=== PATIENT | female | born 1930 | race Hispanic/Latino ===

== ENCOUNTER 2018-08-16 11:16 | Emergency (ER) | payer MEDICARE, MEDICAID ==
[2018-08-16 11:31] VITALS: BMI 16.0
[2018-08-16] MEDS ORDERED: Iodixanol 320 MG/ML 100 ML BOTTLE IV ONE (11:34)
[2018-08-16] MEDS ORDERED: Phenylephrine 10 mg/ml Inj ONE (11:34)
[2018-08-16] MEDS ORDERED: Iohexol 350mgl/ml 50 ML ONE (11:34)
[2018-08-16] MEDS ORDERED: Lidocaine PF 2% (5 ml) Inj (For Cardiac Arrhy) ONE (11:34)
[2018-08-16] MEDS ORDERED: Iodixanol 320 MG/ML 200 ML BOTTLE IV ONE (11:34)
[2018-08-16] MEDS ORDERED: Nitroglycerin 50mg in D5W 0 MG/0 ML BOTTLE IV ONE (11:34)
--- NOTE | 2018-08-16 11:34 | ED PDOC ---
Arrival/HPI - General Chief Complaint: Cardiac Arrest Historian: Family (Grandson), EMS EM Caveat: Acuity of Condition - History of Present Illness Narrative History of Present Illness (Text): 08/16/18 11:34 87 y/o F with a PMH of arthritis presents to the ED via EMS s/p cardiac arrest prior to arrival. Per grandson, patient has been feeling unwell for the last week and went into cardiopulmonary arrest around 10:15am this morning, witnessed by family. BLS was subsequently called, who found patient in cardiac arrest and immediately initiated CPR until ALS arrived. Per ALS, she was found to have V- fib, defibrillated once at 360J, given 1mg epi, with ROSC @10:38. Patient was intubated en route to the ED and given 20 mg push dose epi, 2 mg of versed and 100mg phenylephrine via IO in L. tibia. HPI and ROS is limited due to acuity of patient. Time/Duration: Prior to Arrival Symptom Onset: Sudden Symptom Course: Unchanged Activities at Onset: Light Context: Home Past Medical History - Provider Review Nursing Documentation Reviewed: Yes - Infectious Disease Hx of Infectious Diseases: None - Reproductive Menopause: Yes - Psychiatric Hx Substance Use: No Family/Social History - Physician Review Nursing Documentation Reviewed: Yes Family/Social History: No Known Family HX Smoking Status: Unknown If Ever Smoked Hx Alcohol Use: No Hx Substance Use: No Allergies/Home Meds Allergies/Adverse Reactions: Allergies No Known Allergies Allergy (Verified 08/16/18 11:28) Home Medications: Home Meds Medication Instructions Recorded Confirmed Unobtainable 08/16/18 08/16/18 Review of Systems - Physician Review All systems were reviewed & negative as marked: Yes - Review of Systems Systems not reviewed;Unavailable: Acuity of Condition Physical Exam Vital Signs Reviewed: Yes Vital Signs Temp Pulse Resp BP Pulse Ox 08/16/18 11:29 96.8 F L 119 H 20 132/90 99 Temperature: Afebrile Blood Pressure: Normal Pulse: Tachycardic Respiratory Rate: Mechanically Ventilated Mental Status: Positive for: other (Unresponsive). No: Alert and Oriented X 3 - Systems Exam Head: Present: Atraumatic, Normocephalic Pupils: Present: Other (2mm minimally reactive) Conjunctiva: Present: Normal Mouth: Present: Dry Respiratory/Chest: Present: Clear to Auscultation, Other (ET tube in place) Cardiovascular: Present: Normal S1, S2, Tachycardic Abdomen: Present: Other (abd soft) Upper Extremity: Present: Normal Inspection Lower Extremity: Present: Normal Inspection Neurological: No: GCS=15 Skin: Present: Warm, Dry. No: Rashes Psychiatric: No: Alert, Oriented x 3 Medical Decision Making ED Course and Treatment: Patient seen and examined immediately upon arrival to the ED. EKG done showing ST elevation in inferior and lateral leads. Code heart called. Patient found to have guaiac positive stool. Labs drawn. 08/16/18 11:[address] Zarate, who came down to see the patient. Given advanced age and GI bleed, will not take to dairy lab technician. Can start heparin if H&H is stable. 08/16/18 11:53 Hgb 7.5, discussed with Dr. Zarate, will not start heparin at this time. Case discussed with Dr. Wakefield, patient's PMD. Accepts patient to her service for admission. Case also discussed with ICU team under Dr. Ospina, accepts patient to ICU. 2u PRBC ordered for transfusion. Patient admitted to ICU. 08/16/18 16:35 Several hours after admission- patient still in the ED, not yet transferred to room, currently receiving blood transfusion. Became pulseless. PEA on monitor. CPR immediately initiated. Epinephrine given at 1638, 1644, 1647, and 1650, with ROSC after last epi. Rhythm checks during arrest showed PEA or asystole. 08/16/18 17:05 Patient again became pulseless. Asystole on monitor. CPR again initiated. Epinephrine given. Time of - 17:08 Please refer to code sheet for more details. - Critical Care Critical Care Minutes: 60 minutes - RAD Interpretation Narrative RAD Interpretations (Text): CXR IMPRESSION: Diffuse ill-defined opacity bilaterally with juanita confluency at the lateral left lung base. Right apical pleural thickening common nonspecific. ET tube repositioned more proximally. Radiology Orders: 08/16/18 11:30 CHEST PORTABLE [RAD] Stat - EKG Interpretation EKG Interpretation (Text): 11:23- Sinus tachycardia, rate 111, normal axis, normal intervals, ST elevation in inferolateral leads - PA / ROUND BONER / Resident Statement MD/DO has reviewed & agrees with the documentation as recorded. - Scribe Statement The provider has reviewed the documentation as recorded by the Scribe Dalyngs Duvelsaint All medical record entries made by the Nergo were at my direction and pers onally dictated by me. I have reviewed the chart and agree that the record accurately reflects my personal performance of the history, physical exam, medical decision making, and the department course for this patient. I have also personally directed, reviewed, and agree with the discharge instructions and disposition. Disposition/Present on Arrival - Present on Arrival Any Indicators Present on Arrival: No History of DVT/PE: No History of Uncontrolled Diabetes: No Urinary Catheter: No History of Decub. Ulcer: No History Surgical Site Infection Following: None - Disposition Have Diagnosis and Disposition been Completed?: Yes Diagnosis: STEMI (ST elevation myocardial infarction), GI bleed, Respiratory failure Disposition: WITH WITHOUT AUTOPSY Disposition Time: 12:12 Condition: Referrals: Liv Wakefield MD [Primary Care Provider] - Follow up with primary
[2018-08-16 11:51] LABS: EOS % 0.9 % (1.5-5.0); HEMOGLOBIN 7.5 g/dL (12.0-16.0); LYMPH # 1.8 (1.2-3.4); LYMPH % 78.5 % (22.0-35.0); MEAN CELL VOLUME 86.1 fl (80.0-105.0); MEAN CORPUSCULAR HEMOGLOBIN 26.1 pg (25.0-35.0); MEAN CORPUSCULAR HGB CONC 30.4 g/dl (31.0-37.0); MEAN PLATELET VOLUME 10.5 fl (7.0-11.0); MONO # 0.2 (0.1-0.6); MONO % 9.4 % (1.0-6.0); RBC 2.87 10^6/uL (3.5-6.1); RED CELL DISTRIBUTION WIDTH 20.2 % (11.5-14.5); WHITE BLOOD COUNT 2.2 10^3/uL (4.5-11.0)
[2018-08-16 11:52] LABS: BLOOD UREA NITROGEN 26 mg/dL (7-21); GFR NON-AFRICAN AMERICAN > 60; PLATELET COUNT 48 10^3/uL (120.0-450.0)
[2018-08-16 11:53] LABS: ALBUMIN 2.2 g/dL (3.0-4.8); INR 1.11; PARTIAL THROMBOPLASTIN TIME 37.2 Seconds (26.9-38.3); PROTHROMBIN TIME 12.5 SECONDS (9.4-12.5)
[2018-08-16 11:54] VITALS: O2SAT 100
[2018-08-16 11:54] LABS: ALB/GLOB RATIO 0.8 (1.1-1.8); ALT/SGPT 24 U/L (7-56); AST/SGOT 67 U/L (14-36)
[2018-08-16] MEDS ORDERED: Metoprolol 1 mg/ml Inj IVP STA (12:07)
[2018-08-16] MEDS ORDERED: Nitroglycerin 2% Ointment Foilpak UD TOP SCH (12:15)
[2018-08-16] MEDS ORDERED: Metoprolol 1 mg/ml Inj IVP SCH (12:15)
[2018-08-16 12:26] LABS: TROPONIN I 3.91 ng/mL
[2018-08-16 12:27] LABS: URINE BILIRUBIN SMALL (NEGATIVE); URINE BLOOD TRACE-INTACT (NEGATIVE); URINE GLUCOSE (UA) NEGATIVE (NEGATIVE); URINE LEUKOCYTE ESTERASE NEGATIVE Leu/uL (NEGATIVE); URINE PROTEIN TRACE mg/dL (<30 mg/dL)
[2018-08-16 12:28] LABS: ATYPICAL LYMPHOCYTE 4 % (0.0-0.0); LARGE PLATELETS PRESENT; LYMPHOCYTE 81 % (22.0-35.0); MONOCYTE 5 % (1.0-6.0); NEUTROPHIL 10 % (50.0-70.0); NUCLEATED RED BLOOD CELL 3 %
[2018-08-16 12:29] LABS: PLATELET ESTIMATE LOW (NORMAL)
[2018-08-16 12:30] LABS: URINE APPEARANCE SL CLOUDY (CLEAR); URINE COLOR LIGHT YELLOW (YELLOW)
[2018-08-16 12:32] LABS: URINE BACTERIA MANY /hpf; URINE FINE GRANULAR CAST 0 - 2 /hpf; URINE HYALINE CAST 0 - 2 /hpf
[2018-08-16 12:33] LABS: URINE AMORPHOUS SEDIMENT SMALL /hpf; URINE COARSE GRANULAR CAST TRACE /hpf
[2018-08-16 12:42] LABS: ARTERIAL BLOOD GAS HCO3 19.8 mmol/L (21-28); ARTERIAL BLOOD GAS O2 SAT 99.4 % (95-98); ARTERIAL BLOOD GAS PCO2 32 mm/Hg (35-45); ARTERIAL BLOOD GAS TCO2 20.8 mmol.L (22-28)
--- NOTE | 2018-08-16 13:09 | RAD ---
Date of service: 08/16/2018 HISTORY: protocol COMPARISON: No prior. FINDINGS: LUNGS: Interstitial infiltrate with more patchy areas of consolidation in the left lower lobe peripherally. Endotracheal tube at the level of the mellissa PLEURA: Right apical pleural thickening and consolidation. CARDIOVASCULAR: Aortic calcification and tortuosity Normal cardiac size. No pulmonary vascular congestion. OSSEOUS STRUCTURES: No significant abnormalities. VISUALIZED UPPER ABDOMEN: Normal. OTHER FINDINGS: None. IMPRESSION: Right apical pleural thickening and consolidation. Diffuse interstitial infiltrate. Patchy infiltrate in the periphery of the left lower lobe. Endotracheal tube at the level of the mellissa
--- NOTE | 2018-08-16 13:26 | CP.PCM.CON ---
<Graciela Krishna - Last Filed: 08/16/18 15:01> History of Present Illness - History of Present Illness History of Present Illness: Graciela Krishna DO, PGY-2: ICU Consult Note 87 year old female with a past medical history of rheumatoid arthritis who presented to the ED s/p cardiac arrest. For the past week the patient was feeling weak (per her grandson). At around 10:15 she was found to be unr esponsive without a pulse. CPR was initiated immediately. The court monitor showed V-fib and the patient was shocked with 360 J and given 1 mg of Epinephrine. ROSC was obtained at 10:38. Patient was intubated en route to the ED and given a dose EPI,2 mg of Versed and 100mg phenylephrine IO in Left tibia. HPI and ROS is limited due to acuity of patient. In the ED, a code heart was called as the patient had ST elevation in leads II, III, and aVF. Dr. Zarate came and saw the patient and did not think she was a candidate for any antiplatelet or anticoagulants at this time; therfore, cardiac catheter was deferred. PMH: Rheumatoid Arthritis, solitary pulmonary nodule PSH: Denies Allergies: NKA Social: Unobtainable PMD: Dr. Wakefield Review of Systems - Review of Systems All systems: reviewed and no additional remarkable complaints except (as per HPI) Past Patient History - Infectious Disease Hx of Infectious Diseases: None - Past Social History Smoking Status: Unknown If Ever Smoked - MUSCULOSKELETAL/RHEUMATOLOGICAL Hx Arthritis: Yes - PSYCHIATRIC Hx Substance Use: No Meds Allergies/Adverse Reactions: Allergies Allergy/AdvReac Type Severity Reaction Status Date / Time No Known Allergies Allergy Verified 08/16/18 11:28 - Medications Medications: Current Medications Metoprolol Tartrate (Lopressor) 5 mg IVP Q6H [facility] Last Admin: 08/16/18 12:40 Dose: Not Given Nitroglycerin (Nitro-Bid 2% Oint) 1 ea TOP Q6H [facility] Last Admin: 08/16/18 12:15 Dose: 1 ea Physical Exam - Constitutional Appears: Other (unresponsive) Additional comments: intubated - Head Exam Head Exam: ATRAUMATIC, NORMOCEPHALIC - Eye Exam Eye Exam: absent: PERRL Pupil Exam: Miosis - ENT Exam ENT Exam: Mucous Membranes Moist, Normal Oropharynx - Neck Exam Neck exam: Positive for: Normal Inspection - Respiratory Exam Respiratory Exam: Clear to Auscultation Bilateral, NORMAL BREATHING PATTERN. absent: Accessory Muscle Use - Cardiovascular Exam Cardiovascular Exam: Tachycardia, RRR, +S1, +S2 - GI/Abdominal Exam GI & Abdominal Exam: Normal Bowel Sounds, Soft - Extremities Exam Additional comments: left tibial I/O - Neurological Exam Neurological exam: Alert, CN II-XII Intact, Oriented x3 - Psychiatric Exam Psychiatric exam: Normal Affect, Normal Mood - Skin Skin Exam: Dry, Intact, Normal Color, Warm Results - Vital Signs Recent Vital Signs: Last Vital Signs Temp 96.8 F L 08/16/18 11:29 Pulse 117 H 08/16/18 12:22 Resp 22 08/16/18 12:22 BP 131/87 08/16/18 12:22 Pulse Ox 100 08/16/18 12:22 - Labs Result Diagrams: 08/16/18 11:26 08/16/18 11:26 Labs: Laboratory Results - last 24 hr 08/16/18 08/16/18 08/16/18 11:20 11:20 11:26 WBC 2.2 L RBC 2.87 L Hgb 7.5 L Hct 24.7 L MCV 86.1 MCH 26.1 MCHC 30.4 L RDW 20.2 H Plt Count 48 L* MPV 10.5 Neut % (Auto) 11.2 L Lymph % (Auto) 78.5 H [place] % (Auto) 9.4 H Eos % (Auto) 0.9 L Baso % (Auto) 0.0 Lymph # (Auto) 1.8 [place] # (Auto) 0.2 Eos # (Auto) 0.0 Baso # (Auto) 0.00 Absolute Neuts (auto) 0.25 L Neutrophils % (Manual) 10 L Lymphocytes % (Manual) 81 H Atypical Lymphs % 4 H Monocytes % (Manual) 5 Nucleated RBC % 3 Platelet Evaluation Low Large Platelets Present PT INR APTT pCO2 pO2 HCO3 ABG pH ABG Total CO2 ABG O2 Saturation ABG Base Excess ABG Potassium Glucose Lactate Mechanical Rate FiO2 Tidal Volume PEEP Crit Value Called To Crit Value Called By Blood Gas Notified Time Sodium Potassium Chloride Carbon Dioxide Anion Gap BUN Creatinine Est GFR ( Amer) Est GFR (Non-Af Amer) POC Glucose (mg/dL) Random Glucose Calcium Total Bilirubin AST ALT Alkaline Phosphatase Lactate Dehydrogenase Total Creatine Kinase Troponin I Total Protein Albumin Globulin Albumin/Globulin Ratio Arterial Blood Potassium Urine Color Light yellow Urine Appearance Sl cloudy Urine pH 6.0 Ur Specific [place] 1.025 Urine Protein Trace H Urine Glucose (UA) Negative Urine Ketones Trace H Urine Blood Trace-intact H Urine Nitrate Negative Urine Bilirubin Small H Urine Urobilinogen 4.0 H Ur Leukocyte Esterase Negative Urine RBC 2 - 5 H Urine WBC 1 - 3 Amorphous Sediment Small Urine Bacteria Many Hyaline Casts 0 - 2 Fine Granular Casts 0 - 2 Coarse Granular Casts Trace Urine Other Uyeast Blood Type A NEGATIVE Blood Type Confirm Antibody Screen Negative BBK History Checked No verified bt 08/16/18 08/16/18 08/16/18 11:26 11:26 11:40 WBC RBC Hgb Hct MCV MCH MCHC RDW Plt Count MPV Neut % (Auto) Lymph % (Auto) [place] % (Auto) Eos % (Auto) Baso % (Auto) Lymph # (Auto) [place] # (Auto) Eos # (Auto) Baso # (Auto) Absolute Neuts (auto) Neutrophils % (Manual) Lymphocytes % (Manual) Atypical Lymphs % Monocytes % (Manual) Nucleated RBC % Platelet Evaluation Large Platelets PT 12.5 INR 1.11 APTT 37.2 pCO2 pO2 HCO3 ABG pH ABG Total CO2 ABG O2 Saturation ABG Base Excess ABG Potassium Glucose Lactate Mechanical Rate FiO2 Tidal Volume PEEP Crit Value Called To Crit Value Called By Blood Gas Notified Time Sodium 135 Potassium 3.5 L Chloride 104 Carbon Dioxide 20 L Anion Gap 15 BUN 26 H Creatinine 0.7 Est GFR ( Amer) > 60 Est GFR (Non-Af Amer) > 60 POC Glucose (mg/dL) 110 Random Glucose 173 H Calcium 10.0 Total Bilirubin 1.6 H AST 67 H ALT 24 Alkaline Phosphatase 88 Lactate Dehydrogenase 873 H Total Creatine Kinase 98 Troponin I 3.91 H* Total Protein 5.0 L Albumin 2.2 L Globulin 2.8 Albumin/Globulin Ratio 0.8 L Arterial Blood Potassium Urine Color Urine Appearance Urine pH Ur Specific [place] Urine Protein Urine Glucose (UA) Urine Ketones Urine Blood Urine Nitrate Urine Bilirubin Urine Urobilinogen Ur Leukocyte Esterase Urine RBC Urine WBC Amorphous Sediment Urine Bacteria Hyaline Casts Fine Granular Casts Coarse Granular Casts Urine Other Blood Type Blood Type Confirm Antibody Screen BBK History Checked 08/16/18 08/16/18 12:30 12:38 WBC RBC Hgb Hct MCV MCH MCHC RDW Plt Count MPV Neut % (Auto) Lymph % (Auto) [place] % (Auto) Eos % (Auto) Baso % (Auto) Lymph # (Auto) [place] # (Auto) Eos # (Auto) Baso # (Auto) Absolute Neuts (auto) Neutrophils % (Manual) Lymphocytes % (Manual) Atypical Lymphs % Monocytes % (Manual) Nucleated RBC % Platelet Evaluation Large Platelets PT INR APTT pCO2 32 L pO2 406.0 H HCO3 19.8 L ABG pH 7.40 ABG Total CO2 20.8 L ABG O2 Saturation 99.4 H ABG Base Excess -4.0 L ABG Potassium 2.9 L Glucose 201 H Lactate 3.5 H Mechanical Rate 15 FiO2 100.0 Tidal Volume 400 PEEP 5 Crit Value Called To Hilar[place] [id number] Blood Gas Notified Time 1245 Sodium 136.0 Potassium Chloride 111.0 H Carbon Dioxide Anion Gap BUN Creatinine Est GFR ( Amer) Est GFR (Non-Af Amer) POC Glucose (mg/dL) Random Glucose Calcium Total Bilirubin AST ALT Alkaline Phosphatase Lactate Dehydrogenase Total Creatine Kinase Troponin I Total Protein Albumin Globulin Albumin/Globulin Ratio Arterial Blood Potassium 2.9 L Urine Color Urine Appearance Urine pH Ur Specific [place] Urine Protein Urine Glucose (UA) Urine Ketones Urine Blood Urine Nitrate Urine Bilirubin Urine Urobilinogen Ur Leukocyte Esterase Urine RBC Urine WBC Amorphous Sediment Urine Bacteria Hyaline Casts Fine Granular Casts Coarse Granular Casts Urine Other Blood Type Blood Type Confirm A NEGATIVE Antibody Screen BBK History Checked - EKG Data EKG comments: EKG shows ST elevations in leads 2, 3, and avF Assessment & Plan - Assessment and Plan (Free Text) Assessment: 87 year old female with a past medical history of RA who presented s/p cardiac arrest and underwent chest compression and defibrillation for V-fib with ROSC obtained in the field. Patient was also intubated in the field. Neuro - Will prognosticate 72 hours after arrest Cardiac -Cardiac arrest secondary to STEMI (no hypothermic protocol given patient is actively bleeding) - Cardiology defers PCI at the current time secondary to patient's high risk of bleeding with antiplatelets and anticoagulation - 1 unit of PRBCs - Holding DAPT - no heparin drip - high intensity statin - Metoprolol 50 mg BID Respiratory - Ventilator in PRVC mode with rate of 15 bpm, FIO2 of 40%, PEEP of 5, and TV of 400 - Keep oxygen saturation above 94% - Chest X-ray shows ill-defined bilateral infiltrates - Procalcitonin ordered, unlikely to be pneumonia - GI - Likely GI bleed with drop of hemoglobin - Protonix drip started empirically - 1 unit of PRBCS to be transfused ID - procalcitonin ordered - UA is negative - blood cultures pending - Chest X-ray shows no definitive infiltrate Heme - Pancytopenic - 1 unit of PRBCs Case was reviewed and discussed with attending physician, Dr. Hedy Ospina <Hedy Ospina - Last Filed: 08/16/18 16:50> Meds - Medications Medications: Current Medications Pantoprazole Sodium (Protonix 40mg Ivpb) 40 mg in 100 mls @ 20 mls/hr IVPB .Q5H [facility] Metoprolol Tartrate (Lopressor) 5 mg IVP Q6H [facility] Last Admin: 08/16/18 12:40 Dose: Not Given Nitroglycerin (Nitro-Bid 2% Oint) 1 ea TOP Q6H [facility] Last Admin: 08/16/18 12:15 Dose: 1 ea Results - Vital Signs Recent Vital Signs: Last Vital Signs Temp 98.2 F 08/16/18 15:55 Pulse 112 H 08/16/18 15:55 Resp 20 08/16/18 15:55 BP 133/97 H 08/16/18 15:55 Pulse Ox 100 08/16/18 15:50 - Labs Result Diagrams: 08/16/18 11:26 08/16/18 11:26 Labs: Laboratory Results - last 24 hr 08/16/18 08/16/18 08/16/18 11:20 11:20 11:26 WBC 2.2 L RBC 2.87 L Hgb 7.5 L Hct 24.7 L MCV 86.1 MCH 26.1 MCHC 30.4 L RDW 20.2 H Plt Count 48 L* MPV 10.5 Neut % (Auto) 11.2 L Lymph % (Auto) 78.5 H [place] % (Auto) 9.4 H Eos % (Auto) 0.9 L Baso % (Auto) 0.0 Lymph # (Auto) 1.8 [place] # (Auto) 0.2 Eos # (Auto) 0.0 Baso # (Auto) 0.00 Absolute Neuts (auto) 0.25 L Neutrophils % (Manual) 10 L Lymphocytes % (Manual) 81 H Atypical Lymphs % 4 H Monocytes % (Manual) 5 Nucleated RBC % 3 Platelet Evaluation Low Large Platelets Present PT INR APTT pCO2 pO2 HCO3 ABG pH ABG Total CO2 ABG O2 Saturation ABG Base Excess ABG Potassium VBG pH VBG pCO2 VBG HCO3 VBG Total CO2 VBG O2 Sat (Calc) VBG Base Excess VBG Potassium Glucose Lactate Mechanical Rate FiO2 Tidal Volume PEEP Crit Value Called To Crit Value Called By Blood Gas Notified Time Sodium Potassium Chloride Carbon Dioxide Anion Gap BUN Creatinine Est GFR ( Amer) Est GFR (Non-Af Amer) POC Glucose (mg/dL) Random Glucose Calcium Total Bilirubin AST ALT Alkaline Phosphatase Lactate Dehydrogenase Total Creatine Kinase Troponin I Total Protein Albumin Globulin Albumin/Globulin Ratio Arterial Blood Potassium Venous Blood Potassium Urine Color Light yellow Urine Appearance Sl cloudy Urine pH 6.0 Ur Specific [place] 1.025 Urine Protein Trace H Urine Glucose (UA) Negative Urine Ketones Trace H Urine Blood Trace-intact H Urine Nitrate Negative Urine Bilirubin Small H Urine Urobilinogen 4.0 H Ur Leukocyte Esterase Negative Urine RBC 2 - 5 H Urine WBC 1 - 3 Amorphous Sediment Small Urine Bacteria Many Hyaline Casts 0 - 2 Fine Granular Casts 0 - 2 Coarse Granular Casts Trace Urine Other Uyeast Blood Type A NEGATIVE Blood Type Confirm Antibody Screen Negative Crossmatch See Detail BBK History Checked No verified bt 08/16/18 08/16/18 08/16/18 11:26 11:26 11:40 WBC RBC Hgb Hct MCV MCH MCHC RDW Plt Count MPV Neut % (Auto) Lymph % (Auto) [place] % (Auto) Eos % (Auto) Baso % (Auto) Lymph # (Auto) [place] # (Auto) Eos # (Auto) Baso # (Auto) Absolute Neuts (auto) Neutrophils % (Manual) Lymphocytes % (Manual) Atypical Lymphs % Monocytes % (Manual) Nucleated RBC % Platelet Evaluation Large Platelets PT 12.5 INR 1.11 APTT 37.2 pCO2 pO2 HCO3 ABG pH ABG Total CO2 ABG O2 Saturation ABG Base Excess ABG Potassium VBG pH VBG pCO2 VBG HCO3 VBG Total CO2 VBG O2 Sat (Calc) VBG Base Excess VBG Potassium Glucose Lactate Mechanical Rate FiO2 Tidal Volume PEEP Crit Value Called To Crit Value Called By Blood Gas Notified Time Sodium 135 Potassium 3.5 L Chloride 104 Carbon Dioxide 20 L Anion Gap 15 BUN 26 H Creatinine 0.7 Est GFR ( Amer) > 60 Est GFR (Non-Af Amer) > 60 POC Glucose (mg/dL) 110 Random Glucose 173 H Calcium 10.0 Total Bilirubin 1.6 H AST 67 H ALT 24 Alkaline Phosphatase 88 Lactate Dehydrogenase 873 H Total Creatine Kinase 98 Troponin I 3.91 H* Total Protein 5.0 L Albumin 2.2 L Globulin 2.8 Albumin/Globulin Ratio 0.8 L Arterial Blood Potassium Venous Blood Potassium Urine Color Urine Appearance Urine pH Ur Specific [place] Urine Protein Urine Glucose (UA) Urine Ketones Urine Blood Urine Nitrate Urine Bilirubin Urine Urobilinogen Ur Leukocyte Esterase Urine RBC Urine WBC Amorphous Sediment Urine Bacteria Hyaline Casts Fine Granular Casts Coarse Granular Casts Urine Other Blood Type Blood Type Confirm Antibody Screen Crossmatch BBK History Checked 08/16/18 08/16/18 08/16/18 12:30 12:38 16:00 WBC RBC Hgb Hct MCV MCH MCHC RDW Plt Count MPV Neut % (Auto) Lymph % (Auto) [place] % (Auto) Eos % (Auto) Baso % (Auto) Lymph # (Auto) [place] # (Auto) Eos # (Auto) Baso # (Auto) Absolute Neuts (auto) Neutrophils % (Manual) Lymphocytes % (Manual) Atypical Lymphs % Monocytes % (Manual) Nucleated RBC % Platelet Evaluation Large Platelets PT INR APTT pCO2 32 L pO2 406.0 H 23 L HCO3 19.8 L ABG pH 7.40 ABG Total CO2 20.8 L ABG O2 Saturation 99.4 H ABG Base Excess -4.0 L ABG Potassium 2.9 L VBG pH 7.30 L VBG pCO2 45.0 VBG HCO3 22.1 VBG Total CO2 23.5 VBG O2 Sat (Calc) 40.5 VBG Base Excess -4.4 L VBG Potassium 3.3 L Glucose 201 H 213 H Lactate 3.5 H 4.6 H* Mechanical Rate 15 FiO2 100.0 21.0 Tidal Volume 400 PEEP 5 Crit Value Called To Hilar[place] [id number] Blood Gas Notified Time 1248 1612 Sodium 136.0 136.0 Potassium Chloride 111.0 H 106.0 Carbon Dioxide Anion Gap BUN Creatinine Est GFR ( Amer) Est GFR (Non-Af Amer) POC Glucose (mg/dL) Random Glucose Calcium Total Bilirubin AST ALT Alkaline Phosphatase Lactate Dehydrogenase Total Creatine Kinase Troponin I Total Protein Albumin Globulin Albumin/Globulin Ratio Arterial Blood Potassium 2.9 L Venous Blood Potassium 3.3 L Urine Color Urine Appearance Urine pH Ur Specific [place] Urine Protein Urine Glucose (UA) Urine Ketones Urine Blood Urine Nitrate Urine Bilirubin Urine Urobilinogen Ur Leukocyte Esterase Urine RBC Urine WBC Amorphous Sediment Urine Bacteria Hyaline Casts Fine Granular Casts Coarse Granular Casts Urine Other Blood Type Blood Type Confirm A NEGATIVE Antibody Screen Crossmatch BBK History Checked 08/16/18 16:20 WBC RBC Hgb Hct MCV MCH MCHC RDW Plt Count MPV Neut % (Auto) Lymph % (Auto) [place] % (Auto) Eos % (Auto) Baso % (Auto) Lymph # (Auto) [place] # (Auto) Eos # (Auto) Baso # (Auto) Absolute Neuts (auto) Neutrophils % (Manual) Lymphocytes % (Manual) Atypical Lymphs % Monocytes % (Manual) Nucleated RBC % Platelet Evaluation Large Platelets PT INR APTT pCO2 22 L pO2 136.0 H HCO3 13.6 L ABG pH 7.40 ABG Total CO2 14.3 L ABG O2 Saturation 99.1 H ABG Base Excess -9.1 L ABG Potassium 5.3 H VBG pH VBG pCO2 VBG HCO3 VBG Total CO2 VBG O2 Sat (Calc) VBG Base Excess VBG Potassium Glucose 234 H Lactate 7.2 H* Mechanical Rate 15 FiO2 40.0 Tidal Volume 400 PEEP Crit Value Called To [place] [id number] Blood Gas Notified Time 1635 Sodium 136.0 Potassium Chloride 110.0 H Carbon Dioxide Anion Gap BUN Creatinine Est GFR ( Amer) Est GFR (Non-Af Amer) POC Glucose (mg/dL) Random Glucose Calcium Total Bilirubin AST ALT Alkaline Phosphatase Lactate Dehydrogenase Total Creatine Kinase Troponin I Total Protein Albumin Globulin Albumin/Globulin Ratio Arterial Blood Potassium 5.3 H Venous Blood Potassium Urine Color Urine Appearance Urine pH Ur Specific [place] Urine Protein Urine Glucose (UA) Urine Ketones Urine Blood Urine Nitrate Urine Bilirubin Urine Urobilinogen Ur Leukocyte Esterase Urine RBC Urine WBC Amorphous Sediment Urine Bacteria Hyaline Casts Fine Granular Casts Coarse Granular Casts Urine Other Blood Type Blood Type Confirm Antibody Screen Crossmatch BBK History Checked Addendum Addendum: 08/16/18 16:50 MICU Attending Follow-up Patient seen and examined with housestaff. Case discussed and agree with resident note above with the following add/exceptions: 87F past medical history of RA admitted s/p VF arrest, ROSC achieved after defibrillation. Subsequently patient found to have STEMI, code heart called however cardio deemed patient not a candidate for cardiac cath given evidence of lower gi bleeding, acute anemia and thrombocytopenia. Will medically managed post-resucitation f/u cardio recs Cannot use targetted temp protocol given active bleeding holding antiplat and anticoag given bleeding ok with BB if BP stable transfuse 1 unit PRBC to HB goal > 8 CBC q 6 h monitor plat cont low vt ventilation pull back ETT as it is at the mellissa repeat lac and trend TNI IO in place for access, ok for 24 hours PPI and SCDs for ppx goals of care to dicuss with family Rec pal care consult Hedy Ospina MD MICU Attending
[2018-08-16] MEDS ORDERED: Pantoprazole 40mg/100mL NS 40 MG/100 ML BAG IVPB SCH (14:00)
--- NOTE | 2018-08-16 14:46 | RAD ---
Date of service: 08/16/2018 HISTORY: et tube COMPARISON: 08/16/2018 at 11:31 a.m. FINDINGS: LUNGS: Diffuse ill-defined opacity bilaterally with more confluency at the lateral left base. This is unchanged compared to the prior examination. This may be alveolar or interstitial in origin. No other consolidation appreciated. PLEURA: Extensive right apical pleural thickening, unchanged. This may represent chronic fibrosis or fluid. Neoplasm less likely. CARDIOVASCULAR: There is atherosclerotic calcification of the thoracic aortic arch. Normal cardiac size. Endotracheal tube appropriately positioned approximately 7 cm above tracheal mellissa. This has been repositioned since the earlier examination of the same date. OSSEOUS STRUCTURES: No significant abnormalities. VISUALIZED UPPER ABDOMEN: Normal. OTHER FINDINGS: None. IMPRESSION: Diffuse ill-defined opacity bilaterally with juanita confluency at the lateral left lung base. Right apical pleural thickening common nonspecific. ET tube repositioned more proximally.
[2018-08-16 16:12] LABS: VENOUS BLOOD GAS BASE EXCESS -4.4 mmol/L (0.0-2.0); VENOUS BLOOD GAS PO2 23 mm/Hg (30-55)
[2018-08-16 16:35] LABS: ARTERIAL BLOOD GAS HCO3 13.6 mmol/L (21-28); ARTERIAL BLOOD GAS O2 SAT 99.1 % (95-98); ARTERIAL BLOOD GAS PCO2 22 mm/Hg (35-45); ARTERIAL BLOOD GAS TCO2 14.3 mmol.L (22-28)
[2018-08-16] MEDS ORDERED: Sodium Chloride 0.9% 1,000 ML IV SCH (17:00)
--- NOTE | 2018-08-16 19:52 | CON ---
DATE: 08/16/2018 REASON FOR CONSULTATION AND FOLLOWUP: Cardiac evaluation and Code STEMI. BRIEF CLINICAL HISTORY: This is an 87-year-old female with past medical history of arthritis. Information obtained from the grandson who had witnessed a cardiac arrest per grandson around 01/08/2015, EMS got and the downtime was approximately 20 to 25 minutes and return of circulation came back. The patient was brought here. EKG shows ST elevation 1 mm II, III and aVF V5 and V6. Cardiology consult was called and Code STEMI was activated by who is the ER physician. PAST MEDICAL HISTORY: As mentioned significant arthritis. The patient has a V-Fib arrest defibrillator with 360 and resuscitated at home and approximately downtime is 20 to 25 minutes from 11:15 to 11:40 possibly. CURRENT MEDICATIONS: Unknown presently, a bunch of medications for arthritis. SOCIAL HISTORY: Denies any smoking. Denies any history of alcohol abuse. PAST SURGICAL HISTORY: Unknown. PHYSICAL EXAMINATION VITAL SIGNS: The patient is currently being intubated on vent. They are trying to put the Manzanares catheter. Guaiac is positive. Temperature rectal is 96.8, heart rate 119 and blood pressure 135/85. HEENT: PERRLA. Extraocular muscles intact. NECK: Supple. No carotid bruit. No thyromegaly. CHEST: Clear to auscultation. A mass noted on the left side of the chest below the nipple. ABDOMEN: Soft. EXTREMITIES: Clubbing and cyanosis negative, but generalized 1 to 2+ edema noted, probably protein-calorie malnutrition. LABORATORY DATA: EKG shows normal sinus, sinus tachycardia, ST elevation II, III and aVF in V5 and V6. Blood pending, not available. IMPRESSION: An 87-year-old female with past medical history of hypertension, appears pale. Labs not available. History of arthritis, taking nonsteroidal anti-inflammatory drugs. Status post ventricular fibrillation arrest witnessed, downtime of 20 to 25 minutes, intubated, mental level cannot be assessed, but since then the patient had a downtime of 20 to 25 minutes, guaiac stool positive, the patient is on nonsteroidal anti-inflammatory drugs, drop in hemoglobin and hematocrit, high risk for anemia as well as acute kidney injury, blindly giving anticoagulation. If the patient is taken to the agricultural labor camp manager it will be more detrimental; so, we will hold off the cardiac catheterization, cancel Code ST-elevation myocardial infarction and wait for the blood workup and treat conservatively. If the hemoglobin remains stable and above 10 we will start heparin. Further recommendations depending on when the labs is available. Discussed with the resident in taking care. Discussed with DrLilian who is the emergency room physician. Discussed with the patient's grandson who is at the bedside. We will start beta-nic, nitrates as blood pressure is tolerated and await for hemoglobin. If the hemoglobin is above 10 we will start heparin. Probably the patient is going to be admitted to Dr. Wakefield. We will cancel the Code Heart now and cancel the . We will follow closely. Thank you Dr. Wakefield for providing us the opportunity in taking care of the patient, Kathia Edwards. Mateo Zarate MD
--- NOTE | 2018-08-16 21:02 | CARD ---
APPROVED REPORT Date of service: 08/16/2018 EKG Measurement Heart [id number] <Conclusion> Sinus tachycardia Inferior-posterior infarct, possibly acute Anterolateral infarct, possibly acute ACUTE [place] Abnormal ECG
--- NOTE | 2018-08-17 08:08 | HP ---
DATE OF EXAM: 08/16/2018 HISTORY OF PRESENT ILLNESS: Patient is 87 years old, known to me from office practice. She has history of rheumatoid arthritis, has been on Celebrex and intermittently on prednisone. We have been following her for the last couple of months because family states that she has not been eating that well, refuses to eat. I offered them to have malignancy workup, offered them to have colonoscopy and endoscopy done, but they refused. They did not want any intervention. However, she was given some medication including Periactin to boost therapy diet. Family noticed this morning, she was found to be unresponsive. Family called ambulance and she was found to have cardiac arrest. CPR was initiated and she was shocked, when she was found to be in AFib, she was given a dose of epinephrine. Patient was intubated on her way to emergency room. When I saw the patient, she was intubated and unresponsive. According to the family and grandnephew, she was not feeling well, lately she was weak, and not eating that well. PAST MEDICAL HISTORY: Significant for rheumatoid arthritis and small pulmonary nodules. ALLERGIES: SHE IS NOT ALLERGIC TO ANY MEDICATIONS. SOCIAL HISTORY: She is living with her daughter and recently has been losing weight and not eating that well. MEDICATIONS AT HOME: She was on Celebrex and prednisone intermittently. PHYSICAL EXAMINATION: GENERAL: She was seen in the emergency room in bed 2. She was intubated, looked pale. VITAL SIGNS: She is afebrile, pulse 110, respirations 22, and blood pressure 137/90. LUNGS: Bilateral fair airflow. No rhonchi or crackles. HEART: S1 and S2 audible. ABDOMEN: Soft and nontender. No rebound. No guarding. NEUROLOGIC: She is unresponsive . LABORATORY DATA: WBC 2.2, hemoglobin 7.5, hematocrit 24.7, and platelet of 48. PT 12.5. INR 1.11. Chemistry; sodium 135, potassium 3.5, chloride 104, CO2 of 20, BUN 26, creatinine 0.7, and blood sugar of 110. Total bili 126. AST 67, and AST 24. Troponin 3.91. Amylase is 873. ASSESSMENT: 1. ST-elevation myocardial infarction. 2. Respiratory failure. 3. Status post cardiac arrest. 4. Gastrointestinal bleed. 5. Anemia. PLAN: When I saw the patient, she was on vent. I discussed with embroidery designer given the patient's multiple comorbidities and active GI bleed. There was no indication to take her to ship laborer. She was admitted in the ICU, but later on her family was approached and made her DNR so later on. Liv Wakefield MD
[2018-08-19 07:19] VITALS: BP 0/0; PULSE 0; RESP 0; TEMP 0
== END 2018-08-16 18:35 ==
LOC: ED 11:16 → ERH 12:12 → UNDOADMIN 12:12 → ERH 16:51 → ED 18:35
DX: I21.3 ST elevation (STEMI) myocardial infarction of unspecified site (principal); J96.90 Respiratory failure, unspecified, unspecified whether with hypoxia or hypercapnia; K92.2 Gastrointestinal hemorrhage, unspecified
CPT/HCPCS: 36430; 36600; 71045; 80053; 81001; 82550; 82803; 82948; 83615; 84145; 84484; 85025; 85610; 85730; 86850; 86900; 86920; 93005; 96374; 96376; 99285; J1644; P9016